=== PATIENT | female | born 1935 | race Caucasian/White ===

== ENCOUNTER → 2023-05-19 13:10 | Outpatient (CLI) | payer MEDICARE, SELFPAY ==
[2023-05-19 13:20] LABS: Microscopic, Urine URINE MICROSCOPIC (MICROSCOPIC)
[2023-05-19 13:45] LABS: Appearance,Urine CLEAR (Clear); Blood, Urine Negative (Negative); Color,Urine YELLOW (Yellow); Glucose,Urine (UA) Negative (Negative); Ketones,Urine TRACE (Negative); Leukocyte Esterase,Urine TRACE (Negative); Nitrate,Urine Negative (Negative); Protein,Urine Negative (Negative); Urobilinogen,Urine 0.2 EU/dl (0.2)
[2023-05-19 13:51] LABS: Bilirubin,Urine Negative (Negative)
[2023-05-19 13:59] LABS: Bacteria,Urine Trace /lpf; Squamous Epithelial Cell,Urine Occasional #/hpf (0-5); WBC,Urine Occasional #/hpf (0-3)
== END ==
PROVIDERS: PCP Emergency Medicine; Visit Provider Emergency Medicine
DX: R41.82 Altered mental status, unspecified (principal); M54.50 Low back pain, unspecified
CPT/HCPCS: 81001

== ENCOUNTER → 2023-06-15 04:14 | Outpatient (CLI) | payer MEDICARE, SELFPAY ==
[2023-06-15 05:24] LABS: Microscopic, Urine URINE MICROSCOPIC (MICROSCOPIC)
[2023-06-15 05:34] LABS: Appearance,Urine CLOUDY (Clear); Basophils % 0.2 % (0.1-2.0); Blood, Urine Negative (Negative); Color,Urine YELLOW (Yellow); Eosinophils # 0.1 K/mm3 (0.0-0.4); Eosinophils % 0.6 % (0.1-12.0); Glucose,Urine (UA) Negative (Negative); Hematocrit 41.7 % (37.0-47.0); Hemoglobin 13.9 g/dL (12.2-16.2); Ketones,Urine Negative (Negative); Leukocyte Esterase,Urine 1+ (Negative); Lymphocytes # 1.7 K/mm3 (0.7-4.5); Lymphocytes % 15.7 % (10-50); Mean Corpuscular HGB Conc 33.2 g/dL (31.8-35.4); Mean Corpuscular Hemoglobin 31.8 pg (27.0-31.2); Mean Corpuscular Volume 95.8 fl (81-99); Monocytes # 0.5 K/mm3 (0.1-1.0); Monocytes % 4.6 % (1.7-9.3); Neutrophils # 8.7 K/mm3 (1.8-7.8); Nitrate,Urine Negative (Negative); Platelet Count 203 K/mm3 (142-424); Protein,Urine Negative (Negative); Red Blood Count 4.35 M/mm3 (4.20-5.40); Red Cell Distribution Width 14.3 % (11.5-17.5); Specific Gravity, Urine 1.015 (1.005-1.030); Urobilinogen,Urine 0.2 EU/dl (0.2)
[2023-06-15 05:36] LABS: Bilirubin,Urine Negative (Negative)
[2023-06-15 05:42] LABS: Alanine Aminotransferase 13 U/L (12-78); Albumin Level 3.5 g/dl (3.5-5.0); Albumin/Globulin Ratio 1.3 (1.1-1.8); Alkaline Phosphatase 110 U/L (38-126); Anion Gap 15.8 mEq/L (5-15); Aspartate Amino Transferase 24 U/L (14-36); Bilirubin,Total 0.5 mg/dl (0.2-1.3); Blood Urea Nitrogen 52 mg/dl (7-17); Calcium 9.1 mg/dl (8.4-10.2); Carbon Dioxide 22 mmol/L (22.0-30.0); Chloride 101 mmol/L (98-107); Estimated Glomerular Filt Rate 30 ml/min (>60); GFR (African American) 37 ML/MIN (>60); Globulin 2.8 g/dL (1.3-3.2); Glucose 76 mg/dl (74-100); Potassium 3.8 mmoL/L (3.5-5.1); Sodium 135 mmol/L (136-145); Total Protein,Serum 6.3 g/dl (6.3-8.2)
[2023-06-15 05:48] LABS: Bacteria,Urine 3+ /lpf; Mucus,Urine Trace /lpf; Squamous Epithelial Cell,Urine Occasional #/hpf (0-5)
== END ==
PROVIDERS: PCP Internal Medicine; Visit Provider Internal Medicine
DX: Z86.39 Personal history of other endocrine, nutritional and metabolic disease (principal)
CPT/HCPCS: 80053; 81001; 85025; 87086

== ENCOUNTER → 2023-06-15 04:17 | Outpatient (CLI) | payer MEDICARE, SELFPAY | PROVIDERS: PCP Internal Medicine; Visit Provider Internal Medicine | DX: R41.3 Other amnesia (principal) ==

== ENCOUNTER 2023-06-15 07:26 | Observation (INO) | payer MEDICARE, SELFPAY ==
[2023-06-15] VITALS (15 sets, daily range): BP systolic 56–120; BP diastolic 32–70; PULSE 66–101; RESP 12–17; TEMP 36.3–36.7; O2SAT 93–99; BMI 18.9; BMI 17.9
--- NOTE | 2023-06-15 07:28 | XR_ITS ---
FINAL REPORT CLINICAL HISTORY: covid +, cough FINDINGS: SINGLE-VIEW CHEST The heart size is normal. The mediastinum is normal. There is mild atelectasis or scar. There is no pneumothorax. IMPRESSION: Mild atelectasis or scar. Reviewed, Interpreted and Dictated by Trevon Daily III, MD Transcribed by Spring Santamaria Authenticated and [facility]
--- NOTE | 2023-06-15 07:40 | PC.NURSE ---
XR AT BEDSIDE
--- NOTE | 2023-06-15 07:45 | PC.NURSE ---
LAB AT BEDSIDE
--- NOTE | 2023-06-15 07:54 | HMH.EDGENADL ---
Discharge Plan Disposition Patient Disposition: Admitted Condition: Good Clinical Impressions Clinical Impression: ANI (acute kidney injury), Dehydration, Acute UTI, COVID-19 Discharge ED Provider: Sola Dockery General Adult HPI General Chief complaint: Recheck/Abnormal Lab/Rx Stated complaint: weakness Time Seen by Provider: 06/15/23 07:29 Mode of Arrival: EMS Source of Information: EMS and Medical Record Limitations: Altered Mental Status Description of Symptoms (Recalled from ER Triage Doc. by RN): Pt sent from SNF for lots of secretions and recent Covid +. Kristan @ [place] also reports pt to have really bad labs yesterday . Pt is AMS at baseline. Pt has a mild cough. Her mouth is dry and nasal passages are clear. Pt does appear tired. She will not speak, although she will respond with nodding and shaking her head. History of Present Illness HPI narrative: This patient is an 87-year-old female with a history of dementia, hypothyroidism, hyperlipidemia, vitamin D deficiency, anxiety, CHF, hypertension, polyneuropathy, and generalized debility presenting to the emergency department for evaluation with concern for abnormal labs. According to nursing facility report, the patient tested positive for COVID-19 on Monday and had labs drawn yesterday that were abnormal. On medical record review, I see that the patient appeared clinically dry with mildly elevated anion gap and BUN as well as an ANI with a creatinine of 1.6. I also see leukocyte esterase and bacteria in her urine from yesterday. I was able to find labs in her epic chart that demonstrated a baseline normal creatinine as of March 2023. She was around 0.5. No other concerns were noted when report was given. EMS notes that the patient was stable in route. Patient does not contribute to history given her history of dementia. Related Data Home Medications Medication Instructions Recorded Confirmed Lactobacillus acidoph-L.bulgaricus 1 tab PO DAILY 06/13/23 06/15/23 1 million cell chewable tablet acetaminophen 500 mg tablet 1,000 mg PO BID 06/13/23 06/15/23 acetaminophen 500 mg tablet 500 mg PO Q6H PRN Pain, Moderate 06/13/23 06/15/23 baclofen 10 mg tablet 10 mg PO QID 06/13/23 06/15/23 calcium carbonate 200 mg calcium 200 mg PO TID 06/13/23 06/15/23 (500 mg) chewable tablet (Tums) cholecalciferol (vitamin D3) 25 25 mcg PO DAILY 06/13/23 06/15/23 mcg (1,000 unit) capsule furosemide 20 mg tablet 20 mg PO DAILY 06/13/23 06/15/23 guaifenesin 100 mg/5 mL oral liquid 200 mg PO Q6H PRN Cough 06/13/23 06/15/23 lactulose 10 gram/15 mL oral 20 g PO DAILY 06/13/23 06/15/23 solution levothyroxine 75 mcg tablet 75 mcg PO DAILY 06/13/23 06/15/23 lisinopril 2.5 mg tablet 2.5 mg PO DAILY 06/13/23 06/15/23 polyethylene glycol 3350 17 17 g PO DAILY 06/13/23 06/15/23 gram/dose oral powder (Miralax) risperidone 0.25 mg tablet 0.25 mg PO HS paranoid delusions 06/13/23 06/15/23 sennosides 8.6 mg-docusate sodium 1 tab-cap PO BID 06/13/23 06/15/23 50 mg tablet (Senexon-S) sertraline 100 mg tablet 100 mg PO DAILY 06/13/23 06/15/23 Previous Rx's Medication Instructions Recorded lorazepam 1 mg tablet (Ativan) 1 mg PO TID #90 tabs 04/12/23 Allergies Allergy/AdvReac Type Severity Reaction Status Date / Time dicyclomine [From Bentyl] Allergy Unknown Verified 06/13/23 11:13 doxazosin [From Cardura] Allergy Unknown Verified 06/13/23 11:13 gentamicin Allergy Unknown Verified 06/13/23 11:13 lansoprazole [From Prevacid] Allergy Unknown Verified 06/13/23 11:13 metronidazole [From Flagyl] Allergy Unknown Verified 06/13/23 11:13 Penicillins Allergy Unknown Verified 06/13/23 11:13 zolpidem [From Ambien] Allergy Unknown Verified 06/13/23 11:13 [facility] Disclaimer: The information contained in this section may have been updated after the patient was seen, as this information can be updated by other users. Medical History (Reviewed 06/15/23 @ 07:56 by Sola Hill
--- NOTE | 2023-06-15 07:58 | ECG_ITS ---
APPROVED REPORT Exam: Resting ECG HR:105 bpm ECG Measurements Heart Rate 105 AXES AR 131 P -83 QRSd 97 QRS -45 QT 352 T 40 QTc 413 Conclusion NSR with atrial abnormality LEFT ANTERIOR FASCICULAR BLOCK With LAD Late R wave progression ABNORMAL ECG UNCONFIRMED REPORT Electronically signed by : Devang Mooney MD 06/15/2023 17:12:49
[2023-06-15 08:05] LABS: Basophils % 0.1 % (0.1-2.0); Eosinophils # 0.1 K/mm3 (0.0-0.4); Eosinophils % 0.5 % (0.1-12.0); Hematocrit 41.9 % (37.0-47.0); Lymphocytes # 1.4 K/mm3 (0.7-4.5); Mean Corpuscular HGB Conc 33.4 g/dL (31.8-35.4); Mean Corpuscular Hemoglobin 31.8 pg (27.0-31.2); Mean Corpuscular Volume 95.1 fl (81-99); Mean Platelet Volume 8.3 fl (7.4-10.4); Monocytes # 0.4 K/mm3 (0.1-1.0); Monocytes % 3.5 % (1.7-9.3); Neutrophils # 8.1 K/mm3 (1.8-7.8); Neutrophils % 81.9 % (37.0-80.0); Platelet Count 188 K/mm3 (142-424); Red Blood Count 4.41 M/mm3 (4.20-5.40); Red Cell Distribution Width 14.3 % (11.5-17.5); White Blood Count 9.9 K/mm3 (4.8-10.8)
[2023-06-15 08:12] LABS: Chloride 101 mmol/L (98-107)
[2023-06-15 08:13] LABS: Potassium 3.7 mmoL/L (3.5-5.1); Sodium 139 mmol/L (136-145)
[2023-06-15 08:15] LABS: Alanine Aminotransferase 15 U/L (12-78); Alkaline Phosphatase 126 U/L (38-126); Anion Gap 16.7 mEq/L (5-15); Aspartate Amino Transferase 26 U/L (14-36); Bilirubin,Total 0.6 mg/dl (0.2-1.3); Blood Urea Nitrogen 54 mg/dl (7-17); Carbon Dioxide 25 mmol/L (22.0-30.0); Creatinine Clearance Estimated 15 mL/min (50-200); Estimated Glomerular Filt Rate 24 ml/min (>60); GFR (African American) 28 ML/MIN (>60)
[2023-06-15 08:16] LABS: Albumin Level 3.9 g/dl (3.5-5.0); Albumin/Globulin Ratio 1.3 (1.1-1.8); Calcium 9.3 mg/dl (8.4-10.2); Globulin 3.1 g/dL (1.3-3.2); Glucose 93 mg/dl (74-100)
[2023-06-15 08:20] LABS: Microscopic, Urine URINE MICROSCOPIC (MICROSCOPIC)
[2023-06-15 08:26] LABS: Appearance,Urine CLEAR (Clear); Blood, Urine 2+ (Negative); Color,Urine YELLOW (Yellow); Glucose,Urine (UA) Negative (Negative); Ketones,Urine Negative (Negative); Leukocyte Esterase,Urine 2+ (Negative); Nitrate,Urine Negative (Negative); Protein,Urine Negative (Negative); Specific Gravity, Urine 1.015 (1.005-1.030); Urobilinogen,Urine 0.2 EU/dl (0.2)
[2023-06-15 08:29] LABS: Bilirubin,Urine Negative (Negative)
[2023-06-15 08:39] LABS: Bacteria,Urine 3+ /lpf; Squamous Epithelial Cell,Urine Occasional #/hpf (0-5)
--- NOTE | 2023-06-15 08:43 | PC.NURSE ---
Dr Dockery speaking with hospitalist
--- NOTE | 2023-06-15 08:46 | PC.NURSE ---
Called Care Management, s/w Xuan, notified of admission for ANI, COVID, UTI for Dr. Da Silva/Hospitalist
[2023-06-15 08:52] LABS: Influenza A, PCR Not Detected (NotDetected); Influenza B, PCR Not Detected (NotDetected)
[2023-06-15 09:00] LABS: Lactic Acid 1.3 mmol/L (0.7-2.1)
[2023-06-15 09:14] LABS: Coronavirus 19, PCR Detected (NotDetected)
[2023-06-15 09:27] LABS: Thyroid Stimulating Hormone 3.17 uIU/mL (0.465-4.68)
--- NOTE | 2023-06-15 09:44 | HMH.PHAINT1 ---
Pharmacy Intervention Comments: Med reconciliation completed using list from Laura
--- NOTE | 2023-06-15 10:17 | EXP.HP ---
History of Present Illness *Admission Date: 06/15/23 *Reason for visit:: increased confusion and weakness *History of present illness: Ms. Owens is an 87-year-old female with dementia, hypothyroid, hyperlipidemia, CHF who lives at [facility]. Family at bedside provides history as patient is unable to give any history. Patient was sent from SNF today for increased secretions, poor p.o. intake, and decline over the past week. Patient was diagnosed positive with COVID on Monday. Family reports that for the past week she has been eating less and it has been hard to give her medications. She has become more confused and somnolent. Today she was brought to the ER via EMS for evaluation. On arrival she is afebrile but tachycardic, found to be positive for COVID again. Noted to have ANI and concern for UTI on workup. Creatinine elevated to 2.0. Given her decline, ER consulted medicine for admission and further management. At baseline, patient gets around with a walker and 2 people assisting her. She has lost weight over the last 6 months. Fell and broke her hip earlier this year in November. Has good days and bad days but has been having more confusion and less recognition of family. Daughter concerned that patient is showing a decline and in a transition phase with her dementia. They deny any nausea, vomiting, syncope. They do report cough. [facility] Disclaimer: The information contained in this section may have been updated after the patient was seen, as this information can be updated by other users. 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 Polyneuropathy, unspecified Pulmonary fibrosis, unspecified Unspecified fracture of left femur, subsequent encounter for closed fracture with routine healing Unspecified hemorrhoids Vitamin D deficiency Family History No significant family history Social History Smoking Status: Never smoker alcohol intake: never current occupational status: retired Travel in the last 8 weeks: None Review of Systems Review of Systems Review of systems:: unable to obtain Meds Home Medications and Allergies Home Medications Medication Instructions Recorded Confirmed Type lorazepam 1 mg tablet (Ativan) 1 mg PO TID #90 tabs 04/12/23 06/15/23 Rx acetaminophen 500 mg tablet 1,000 mg PO BID 06/13/23 06/15/23 History acetaminophen 500 mg tablet 500 mg PO Q6H PRN Pain, Moderate 06/13/23 06/15/23 History baclofen 10 mg tablet 10 mg PO QID 06/13/23 06/15/23 History calcium carbonate 200 mg calcium 200 mg PO TID 06/13/23 06/15/23 History (500 mg) chewable tablet (Tums) cholecalciferol (vitamin D3) 25 25 mcg PO DAILY 06/13/23 06/15/23 History mcg (1,000 unit) capsule furosemide 20 mg tablet 20 mg PO DAILY 06/13/23 06/15/23 History guaifenesin 100 mg/5 mL oral liquid 200 mg PO Q6H PRN Cough 06/13/23 06/15/23 History lactulose 10 gram/15 mL oral 20 g PO DAILYP PRN Constipation 06/13/23 06/15/23 History solution levothyroxine 75 mcg tablet 75 mcg PO DAILY 06/13/23 06/15/23 History lisinopril 2.5 mg tablet 2.5 mg PO DAILY 06/13/23 06/15/23 History polyethylene glycol 3350 17 17 g PO DAILY 06/13/23 06/15/23 History gram/dose oral powder (Miralax) risperidone 0.25 mg tablet 0.25 mg PO HS paranoid delusions 06/13/23 06/15/23 History sennosides 8.6 mg-docusate sodium 1 tab-cap PO BID 06/13/23 06/15/23 History 50 mg
--- NOTE | 2023-06-15 19:55 | PC.NURSE ---
Notified Greg [employer] of pt unable to swallow PO meds due to confusion and cooperation. Greg ordered to hold medications with no other orders at this time.
[2023-06-16] VITALS: BP 113/54; PULSE 90; RESP 18; TEMP 37.3; O2SAT 96
[2023-06-16 04:00] VITALS: BP 131/93; PULSE 120; RESP 16; TEMP 36.4; O2SAT 95; BMI 21.5
--- NOTE | 2023-06-16 05:23 | PC.NURSE ---
Nurse techs notified that pt hasn't urinated the entire shift, assessed pt, pt abdomen is slightly distended and tender to touch pt seems to be in pain as nurse palpates. Notified Greg, [employer]UMENT [employer]ER and bladder scan performed. Bladder scanner recorded > 755. Gonsalves cath anchored at this time with output of 1300. Pt seems calm and relieved at this time.
--- NOTE | 2023-06-16 05:43 | PC.NURSE ---
Pt abdomen soft and nontender pt seems calm and denies pain at this time
[2023-06-16 08:00] VITALS: BP 147/96; PULSE 97; RESP 18; TEMP 36.9; O2SAT 97
[2023-06-16 08:35] LABS: Basophils % 0.2 % (0.1-2.0); Chloride 102 mmol/L (98-107); Eosinophils % 0.4 % (0.1-12.0); Hematocrit 45.1 % (37.0-47.0); Hemoglobin 14.9 g/dL (12.2-16.2); Lymphocytes # 1.4 K/mm3 (0.7-4.5); Lymphocytes % 13.4 % (10-50); Mean Corpuscular HGB Conc 33.1 g/dL (31.8-35.4); Mean Corpuscular Hemoglobin 31.9 pg (27.0-31.2); Mean Corpuscular Volume 96.2 fl (81-99); Mean Platelet Volume 9.7 fl (7.4-10.4); Monocytes # 0.6 K/mm3 (0.1-1.0); Monocytes % 5.4 % (1.7-9.3); Neutrophils # 8.4 K/mm3 (1.8-7.8); Neutrophils % 80.6 % (37.0-80.0); Platelet Count 178 K/mm3 (142-424); Potassium 3.7 mmoL/L (3.5-5.1); Red Blood Count 4.69 M/mm3 (4.20-5.40); Red Cell Distribution Width 14.6 % (11.5-17.5); Sodium 142 mmol/L (136-145); White Blood Count 10.4 K/mm3 (4.8-10.8)
[2023-06-16 08:37] LABS: Blood Urea Nitrogen 47 mg/dl (7-17); Creatinine Clearance Estimated 25 mL/min (50-200); Estimated Glomerular Filt Rate 39 ml/min (>60); GFR (African American) 47 ML/MIN (>60)
[2023-06-16 08:38] LABS: Alanine Aminotransferase 22 U/L (12-78); Albumin Level 3.9 g/dl (3.5-5.0); Albumin/Globulin Ratio 1.3 (1.1-1.8); Alkaline Phosphatase 139 U/L (38-126); Anion Gap 16.7 mEq/L (5-15); Aspartate Amino Transferase 31 U/L (14-36); Bilirubin,Total 0.6 mg/dl (0.2-1.3); Calcium 9.3 mg/dl (8.4-10.2); Carbon Dioxide 27 mmol/L (22.0-30.0); Globulin 3.1 g/dL (1.3-3.2); Glucose 102 mg/dl (74-100); Magnesium 1.9 mg/dl (1.6-2.3)
--- NOTE | 2023-06-16 09:24 | SW/DCPLANNER ---
This patient currently resides at [facility] level of care. I will continue to follow up w/ Ena at [place] until patient is medically stable for discharge. Discharge date is unknown at this time.
[2023-06-16 12:00] VITALS: BP 159/99; PULSE 88; RESP 16; TEMP 36.5; O2SAT 94
[2023-06-16 13:59] VITALS: BMI 21.4
--- NOTE | 2023-06-16 14:27 | HMH.PTEV ---
Physical Therapy Evaluation Rehab PT IP Evaluation Start: 06/16/23 11:15 Freq: ONCE Status: Active Protocol: Document 06/16/23 14:11 RAZIA (Rec: 06/16/23 14:26 RAZIA [id number]) Subjective/History History History Patient is an 87 year old female with dementia admitted to [facility] 06/15/23 secondary to ANI, UTI and COVID. Patient was recently experiencing increased secretions, poor intake and functional decline over the past week. She lives at SNF. Patient was alone in room upon evaluation. Unable to describe baseline status at this time. Total dependent for bed mobility today. Severe confusion noted. Subjective Subjective Oh god! New diagnosis of cancer in past 12 No months? Rehab PT IP Eval Objective Appearance Patient Behavior Asleep,Confused Patient Orientation Name Difficulty following instructions severe Speech Pattern Mumbled Ambulation Patient Able to Ambulate No Balance Ability to Arise Unable Dynamic Sitting Balance Ability Zero Transfers Bed Transfer Ability Total/Dependent (100%) ROM All Extremities PT ROM Status ABN MMT All Extremities PT MMT ABN Abnormal MMT Grade 2/5 Rehab PT IP prob,goals,plan Problems Date of Evaluation: 06/16/23 PT IP Problems Bed Mobility,Transfers,Gait, Balance,Self care,Safety Rehab Potential Rehab Potential Poor Plan PT Intervention Plan Bed Mobility,Transfers,Gait, Balance,Self care,Safety, Therapeutic Exercise PT Plan Frequency BID Duration LOS Discharge Goals Bed Transfer Ability Maximum x 2 (75% assist) Sit to Stand Chair Transfer Ability Maximum x 2 (75% assist) Discharge Plan PT Discharge Plan PT suggest return to SNF to continue skilled PT interventions once found medically stable by . Veronica Complexity Eval Charge Codes 56360 - High Complexity PHYSICIAN CERTIFICATION: I certify the specified therapy services for Nora Owens are required, authorized, and reviewed every 30 days.
--- NOTE | 2023-06-16 15:46 | HMH.SLDYSPHA ---
Speech & Language Evaluation Speech/Language Dysphagia Evaluation Start: 06/16/23 15:24 Freq: ONCE Status: Active Protocol: Document 06/16/23 15:24 RAH (Rec: 06/16/23 15:46 RAH [id number]) Dysphagia Assess/Goals/Plan Assessment Date of Evaluation: 06/16/23 Evaluation Type Initial Certification Assessment/Problems dysphagia/dementia per MD order Does Patient Qualify for Service Yes Qualify/Failure Comment Pt would benefit from f/u CSE when PO intake improves 2' noncompliance Recommendations PHYSICIAN CERTIFICATION: The specified therapy services are required, authorized, and reviewed every 30 days. Diet Recommendations Pureed Liquid Type Recommendations Normal/Thin SL Swallow Guidelines Assist w/all meals,Alt bite w/ sip thru meal,Standard Aspiration Prec.,Chk mough for pocketing,Crush meds as allowed*,Oral Care Education, Oral care pre/post meals Crush Meds Crush all meds Dysphagia Swallow Precautions/Strategies Sitting Upright (90 deg),Small Bites and Sips,Alternate Liquids/Solids Place Food on Either side of Mouth Additional Consults Recommended Care Management Comment Cognitive decline, potential discussion of pleasure feedings/comfort care Plan Pt/Guardian verbally ack understanding Yes of dx/prognosis/goals G -code Required No Education Instructions provided Discussed limited CSE results, safest recommendations 2' cognitive-linguistic status, and plan to f/u with pt/family , nursing, and care management all of which expressed understanding. Pt/Caregiver able to recall information Able to recall/restate Reinforcement needed No Speech & Language HPI History Present Illness Description of Patient Problem Pt is an 87-year-old female with dementia, hypothyroid, hyperlipidemia, CHF who lives at [facility]. Patient was sent from SNF to ER on 06/15/23 for increased secretions, poor p.o. intake, and decline over the past week . Patient was diagnosed positive with
[2023-06-16 16:00] VITALS: BP 101/83; PULSE 83; RESP 16; TEMP 36.7; O2SAT 97
--- NOTE | 2023-06-16 18:07 | EXP.ACUTE.PN ---
Subjective *Date: 06/16/23 *Time: 18:07 Interval history: Pleasant on exam. Oriented to self only. Minimal response to questions but more alert making good eye contact. Afebrile. Stable on room air. Medical Exam Vital signs and Labs for Last 24 Hours: Vital Signs Temp Pulse Resp BP Pulse Ox O2 Del Method 06/16/23 16:00 98.1 F 83 16 101/83 L 97 Room Air 06/16/23 15:24 Room Air 06/16/23 15:00 Room Air 06/16/23 13:00 Room Air 06/16/23 12:00 97.7 F 88 16 159/99 H 94 L Room Air 06/16/23 11:00 Room Air 06/16/23 09:00 Room Air 06/16/23 08:00 Room Air 06/16/23 08:00 98.4 F 97 H 18 147/96 H 97 Room Air 06/16/23 06:48 Room Air 06/16/23 04:00 97.6 F 120 H 16 131/93 H 95 Room Air 06/16/23 05:00 Room Air 06/16/23 00:00 99.1 F 90 18 113/54 L 96 Room Air 06/16/23 03:00 Room Air 06/16/23 01:00 Room Air 06/15/23 22:32 Room Air 06/15/23 21:00 Room Air 06/15/23 19:17 Room Air 06/15/23 18:27 Room Air Intake and Output 06/16/23 06/16/23 06/16/23 07:59 15:59 23:59 Intake Total 2036 Output Total 1300 / 1800 500 / 1800 Balance -1240 / 237 -470 / 237 1946 Intake: Intake, Oral Amount Infusion Intake 1946 Lactated Ringers 1000ML 1,000 1946 ml @ 125 mls/hr IV .Q8H [facility] Rx# :[id number] Output: Output, Urine Amount 1300 / 1800 500 / 1800 Other: Weight 53.099 kg 53 kg Patient Weight 06/16/23 23:59 Weight 53 kg Laboratory Results - last 24 hr 06/16/23 07:17: WBC 10.4, RBC 4.69, Hgb 14.9, Hct 45.1, MCV 96.2, MCH 31.9 H, MCHC 33.1, RDW 14.6, Plt Count 178, MPV 9.7, Neut % (Auto) 80.6 H, Lymph % (Auto) 13.4, [place] % (Auto) 5.4, Eos % (Auto) 0.4, Baso % (Auto) 0.2, Neut # (Auto) 8.4 H, Lymph # (Auto) 1.4, [place] # (Auto) 0.6, Eos # (Auto) 0.0, Baso # (Auto) 0.0, Sodium 142, Potassium 3.7, Chloride 102, Carbon Dioxide 27, Anion Gap 16.7 H, BUN 47 H, Creatinine 1.30 H D, Estimated Creat Clear 25, Estimated GFR 39 L, Est GFR ( Amer) 47 L D, Glucose 102 H, Calcium 9.3, Magnesium 1.9, Total Bilirubin 0.6, AST 31, ALT 22 D, Alkaline Phosphatase 139 H, Total Protein 7.0, Albumin 3.9, Globulin 3.1, Albumin/Globulin Ratio 1.3 I & O for Labs for Last 24 Hours: Intake & Output 06/13/23 06/14/23 06/15/23 06/16/23 23:59 23:59 23:59 23:59 Intake Total 1050 / 1050 2036 / 2036 Output Total 0 / 0 1800 / 1800 Balance 1050 / 1050 237 / 237 Weight 44.48 kg 53 kg Constitutional: Present no acute distress, thin, chronically ill appearing and cooperative Head: Present atraumatic ENT: Present normal exam Comment:: Bitemporal wasting Respiratory: Present normal respiratory effort; Absent rhonchi, wheezes or crackles Cardiac: Present Reg Rate and Rhythm GI: Present soft and normal bowel sounds; Absent distention or tenderness Extremities: Present normal inspection and full ROM Skin: Present intact; Absent erythema Neuro: Present Grossly Intact, alert, awake and moves all extremities Assessment and Plan *Assessment and plan (1) ANI (acute kidney injury): Status: Acute Category: Medical Code(s): N17.9 - Acute kidney failure, unspecified (2) Dehydration: Status: Acute Category: Medical Code(s): E86.0 - Dehydration (3) Acute UTI: Status: Acute Category: Medical Code(s): N39.0 - Urinary tract infection, site not specified (4) COVID-19: Status: Acute Category: Medical Code(s): U07.1 - COVID-19 (5) Muscle weakness (generalized): Status: Acute Category: Medical Code(s): M62.81 - Muscle weakness (generalized) (6) Chronic systolic (congestive) heart failure: Status: Acute Category: Medical Code(s): I50.22 - Chronic systolic (congestive) heart failure (7) Essential (primary) hypertension: Status: Acute
[2023-06-16 20:00] VITALS: BP 100/73; PULSE 120; RESP 18; TEMP 36.9; O2SAT 93
[2023-06-17] VITALS: BP 99/67; PULSE 95; RESP 20; TEMP 37.2; O2SAT 93
[2023-06-17 04:00] VITALS: BP 112/78; PULSE 68; RESP 22; TEMP 37.6; O2SAT 97; BMI 19.5
--- NOTE | 2023-06-17 05:05 | PC.NURSE ---
Patient has had a decent night tonight. Patient did take her med this evening with Chocolate pudding and her pills crushed. After each bite did have a small amout of coughing. But after a drink of water the coughing subsided. Patient is alert to self but that is it. RN tried to have some conversation with her about eating. She could tell me she wanted more pudding and something to drink but nothing really more. Patient remains with a nicolas due to retention. No other issues noted
[2023-06-17 07:50] VITALS: BP 153/93; PULSE 95; RESP 17; TEMP 36.4; O2SAT 96
[2023-06-17 07:51] LABS: Chloride 106 mmol/L (98-107); Potassium 3.7 mmoL/L (3.5-5.1); Sodium 144 mmol/L (136-145)
[2023-06-17 07:54] LABS: Anion Gap 13.7 mEq/L (5-15); Basophils % 0.1 % (0.1-2.0); Blood Urea Nitrogen 32 mg/dl (7-17); Calcium 9.2 mg/dl (8.4-10.2); Carbon Dioxide 28 mmol/L (22.0-30.0); Creatinine Clearance Estimated 30 mL/min (50-200); Estimated Glomerular Filt Rate 59 ml/min (>60); GFR (African American) 71 ML/MIN (>60); Glucose 115 mg/dl (74-100); Hematocrit 40.7 % (37.0-47.0); Hemoglobin 13.5 g/dL (12.2-16.2); Lymphocytes # 1.5 K/mm3 (0.7-4.5); Lymphocytes % 14.4 % (10-50); Magnesium 1.8 mg/dl (1.6-2.3); Mean Corpuscular HGB Conc 33.1 g/dL (31.8-35.4); Mean Corpuscular Hemoglobin 31.9 pg (27.0-31.2); Mean Corpuscular Volume 96.3 fl (81-99); Mean Platelet Volume 9.8 fl (7.4-10.4); Monocytes # 0.7 K/mm3 (0.1-1.0); Monocytes % 6.5 % (1.7-9.3); Neutrophils % 78.9 % (37.0-80.0); Platelet Count 177 K/mm3 (142-424); Red Blood Count 4.23 M/mm3 (4.20-5.40); Red Cell Distribution Width 14.5 % (11.5-17.5); White Blood Count 10.1 K/mm3 (4.8-10.8)
--- NOTE | 2023-06-17 09:09 | PC.NURSE ---
pt is alert this am but not oriented. she responds to her first name but is unable to voice any orientation. I attempted to give pt medication but she was unable to swallow. She can not follow commands @ this time. 1 episode of vomiting this am. Will continue to monitor pt.
[2023-06-17 11:13] VITALS: PULSE 118; RESP 17; TEMP 36.5; O2SAT 97
[2023-06-17 16:00] VITALS: BP 158/100; PULSE 77; RESP 17; TEMP 36.6; O2SAT 96
--- NOTE | 2023-06-17 17:42 | PC.NURSE ---
pt will not accept any food. I have made multiple attempts to feed her and give her medications today. DAughter is currently @ bedside. states they just want her to be comfortable.
--- NOTE | 2023-06-17 17:45 | EXP.PN ---
Subjective *Date: 06/17/23 *Time: 17:45 Interval history: patient was seen and evaluated at the bedside. denies chest pain, shortness of breath, nausea, vomiting, abdominal pain. Patient does not have any complaints at this time. feels better overall Exam Data for Last 24 hours Vital signs and Labs for Last 24 Hours: Temp Pulse Resp BP Pulse Ox O2 Del Method 97.9 F 77 17 158/100 H 96 Room Air 06/17/23 16:00 06/17/23 16:00 06/17/23 16:00 06/17/23 16:00 06/17/23 16:00 06/17/23 16:00 Laboratory Results - last 24 hr 06/17/23 06:40: WBC 10.1, RBC 4.23, Hgb 13.5, Hct 40.7, MCV 96.3, MCH 31.9 H, MCHC 33.1, RDW 14.5, Plt Count 177, MPV 9.8, Neut % (Auto) 78.9, Lymph % (Auto) 14.4, [place] % (Auto) 6.5, Eos % (Auto) 0.0 L, Baso % (Auto) 0.1, Neut # (Auto) 8.0 H, Lymph # (Auto) 1.5, [place] # (Auto) 0.7, Eos # (Auto) 0.0, Baso # (Auto) 0.0, Sodium 144, Potassium 3.7, Chloride 106, Carbon Dioxide 28, Anion Gap 13.7, BUN 32 H D, Creatinine 0.90 D, Estimated Creat Clear 30, Estimated GFR 59, Est GFR ( Amer) 71 D, Glucose 115 H, Calcium 9.2, Magnesium 1.8 I & O for Last 24 hours: Intake & Output 06/14/23 06/15/23 06/16/23 06/17/23 23:59 23:59 23:59 23:59 Intake Total 1050 / 1050 2112 / 2112 0 / 0 Output Total 0 / 0 1800 / 1800 450 / 450 Balance 1050 / 1050 312 / 312 -450 / -450 Weight 44.48 kg 53 kg 48.262 kg Constitutional Constitutional: no acute distress *Routine HEENT Exam Head: Present normocephalic Eye: Present EOMI and PERRL ENT: Present mucous membranes moist *Routine Neck Exam Neck: Present supple; Absent lymphadenopathy *Routine Respiratory Exam Respiratory: Present CTA bilaterally *Routine Cardiovascular Exam Cardiovascular: Present RRR *Routine Abdominal Exam Abdominal: Present soft and normoactive bowel sounds; Absent tenderness *Routine Extremities Exam Extremities: Absent cyanosis, clubbing or edema *Routine Skin Exam Skin: Present warm; Absent rash *Routine Neurological Exam Neurological: Present alert and oriented X3 Assessment and Plan *Assessment and plan (1) ANI (acute kidney injury): Status: Acute Category: Medical Code(s): N17.9 - Acute kidney failure, unspecified (2) Dehydration: Status: Acute Category: Medical Code(s): E86.0 - Dehydration (3) Acute UTI: Status: Acute Category: Medical Code(s): N39.0 - Urinary tract infection, site not specified (4) COVID-19: Status: Acute Category: Medical Code(s): U07.1 - COVID-19 (5) Muscle weakness (generalized): Status: Acute Category: Medical Code(s): M62.81 - Muscle weakness (generalized) (6) Chronic systolic (congestive) heart failure: Status: Acute Category: Medical Code(s): I50.22 - Chronic systolic (congestive) heart failure (7) Essential (primary) hypertension: Status: Acute Category: Medical Code(s): I10 - Essential (primary) hypertension (8) Generalized anxiety disorder: Status: Acute Category: Medical Code(s): F41.1 - Generalized anxiety disorder (9) Alzheimer's disease with late onset: Status: Acute Category: Medical Code(s): G30.1 - Alzheimer's disease with late onset; F02.80 - Dementia in other diseases classified elsewhere, unspecified severity, without behavioral disturbance, psychotic disturbance, mood disturbance, and anxiety (10) Hypothyroidism: Status: Acute Category: Medical Code(s): E03.9 - Hypothyroidism, unspecified (11) Dementia in other diseases classified elsewhere, unspecified severity, with other behavioral disturbance: Status: Acute Category: Medical Code(s): F02.818 - Dementia in other diseases classified elsewhere, unspecified severity, with other behavioral disturbance Plan 87-year-old female with dementia for which decline over the past week. Poor p.o. intake. Found to have UTI
[2023-06-17 20:00] VITALS: BP 153/96; PULSE 100; RESP 16; TEMP 36.7; O2SAT 96
[2023-06-18] VITALS: BP 134/79; PULSE 113; RESP 20; TEMP 37.2; O2SAT 96
[2023-06-18 04:00] VITALS: BP 143/91; PULSE 106; RESP 16; TEMP 36.7; O2SAT 96; BMI 18.8
--- NOTE | 2023-06-18 05:06 | PC.NURSE ---
Patient has not slept much at all this shift. RN tried multiple times to give medication. Patient got choked. Even talking seeming to be difficult for the patient and she would cough and, be tearing in eyes. The patient was more vocal this shift. As she would tell me if she was cold, or to tell RN she was okay. Patient has not thrown up this shift. no other issues noted
[2023-06-18 07:44] VITALS: BP 158/96; PULSE 86; RESP 18; TEMP 36.9; O2SAT 94
[2023-06-18 11:09] VITALS: BP 148/80; PULSE 114; RESP 19; TEMP 37; O2SAT 95
--- NOTE | 2023-06-18 14:23 | EXP.DC.SUM ---
General Admission date:: 06/15/23 Discharge date: 06/18/23 HPI HPI HPI: Ms. Owens is an 87-year-old female with dementia, hypothyroid, hyperlipidemia, CHF who lives at [facility]. Family at bedside provides history as patient is unable to give any history. Patient was sent from SNF today for increased secretions, poor p.o. intake, and decline over the past week. Patient was diagnosed positive with COVID on Monday. Family reports that for the past week she has been eating less and it has been hard to give her medications. She has become more confused and somnolent. Today she was brought to the ER via EMS for evaluation. On arrival she is afebrile but tachycardic, found to be positive for COVID again. Noted to have ANI and concern for UTI on workup. Creatinine elevated to 2.0. Given her decline, ER consulted medicine for admission and further management. At baseline, patient gets around with a walker and 2 people assisting her. She has lost weight over the last 6 months. Fell and broke her hip earlier this year in November. Has good days and bad days but has been having more confusion and less recognition of family. Daughter concerned that patient is showing a decline and in a transition phase with her dementia. They deny any nausea, vomiting, syncope. They do report cough. Hospital Course Hospital Course Hospital Course: 87-year-old female with dementia for which decline over the past week. Poor p.o. intake. Found to have UTI, ANI, COVID. Discussed case with the ER, request admission for treatment of her acute kidney injury with fluid resuscitation and treatment of UTI with antibiotics. Medicine agreed to admit for further management. Patient more alert today. Speech eval placed. Continues to require inpatient management. Problems addressed as follows: Weakness and altered mentation secondary to UTI and dehydration - DC on oral abx ANI - improved -Urinalysis grossly abnormal concerning for UTI. Positive for leuk esterase and WBCs. Culture pending. continue ceftriaxone 1 g daily Dementia Continue Zoloft 100 mg daily Risperdal 0.25 mg nightly, Ativan 1 mg 3 times a day as needed holding on hypertensive medications given ANI and low blood pressure Hypothyroidism: Continue levothyroxine 75 mcg daily. TSH within normal range at 3.1 stable for discharge, pureed diet Exam Data for Last 24 hours Vital signs and Labs for Last 24 Hours: Temp Pulse Resp BP Pulse Ox O2 Del Method 98.6 F 114 H 19 148/80 H 95 Room Air 06/18/23 11:09 06/18/23 11:09 06/18/23 11:09 06/18/23 11:09 06/18/23 11:09 06/18/23 11:09 I & O for Last 24 hours: Intake & Output 06/15/23 06/16/23 06/17/23 06/18/23 23:59 23:59 23:59 23:59 Intake Total 1050 / 1050 2112 / 2112 0 / 0 0 / 0 Output Total 0 / 0 1800 / 1800 2350 / 2350 250 / 250 Balance 1050 / 1050 312 / 312 -2350 / -2350 -250 / -250 Weight 44.48 kg 53 kg 48.262 kg 46.493 kg Microbiology Reports for the Last 24 Hours: Microbiology 06/15/23 07:52 Blood Blood Culture - Preliminary Constitutional Constitutional: no acute distress *Routine HEENT Exam Head: Present normocephalic Eye: Present EOMI and PERRL ENT: Present mucous membranes moist *Routine Neck Exam Neck: Present supple; Absent lymphadenopathy *Routine Respiratory Exam Respiratory: Present CTA bilaterally *Routine Cardiovascular Exam Cardiovascular: Present RRR *Routine Abdominal Exam Abdominal: Present soft and normoactive bowel sounds; Absent tenderness *Routine Extremities Exam Extremities: Absent cyanosis, clubbing or edema *Routine Skin Exam Skin: Present warm; Absent rash *Routine Neurological Exam Neurological: Present alert Comments: Ax0 x 2, baseline dementia Results Data Completed and Pending Labs on day of discharge: Preliminary micro results at discharge 06/15/23 07:52 Blood Culture - Preliminary Blood DS: Diagnosis Discharge Diagnosis (1) ANI (
--- NOTE | 2023-06-18 18:59 | PC.NURSE ---
Patient continues to be confused. Report caled to [facility]. Patient to be discharged back to [place] when EMS arrives.
[2023-06-18 20:00] VITALS: O2SAT 95
[2023-06-18 22:05] VITALS: BP 138/82; PULSE 108; RESP 16; TEMP 37; O2SAT 97
--- NOTE | 2023-06-18 23:35 | PC.NURSE ---
2335 REPORT GIVEN TO [facility]. PATIENT TRANSPORTED TO [place]. PATIENT COVID POSITIVE.
--- NOTE | 2023-06-18 23:38 | PC.NURSE ---
pt transfered off floor to [place] via EMS @23:34
== END 2023-06-18 23:37 ==
LOC: ER 08:44 → 2ND 08:58
PROVIDERS: Admitting Provider Internal Medicine Adolescent Medicine; Emergency Provider Emergency Medicine; PCP Pediatrics; Visit Provider Internal Medicine Adolescent Medicine
DX: N17.9 Acute kidney failure, unspecified (principal); E86.0 Dehydration; N39.0 Urinary tract infection, site not specified; U07.1 COVID-19; M62.81 Muscle weakness (generalized); I50.22 Chronic systolic (congestive) heart failure; I11.0 Hypertensive heart disease with heart failure; F41.1 Generalized anxiety disorder; G30.1 Alzheimer's disease with late onset; E03.9 Hypothyroidism, unspecified; F02.818 Dementia in other diseases classified elsewhere, unspecified severity, with other behavioral disturbance; E55.9 Vitamin D deficiency, unspecified; E78.5 Hyperlipidemia, unspecified; Z79.899 Other long term (current) drug therapy; Z66 Do not resuscitate
CPT/HCPCS: 71045; 80048; 80053; 81001; 83605; 83735; 84443; 85025; 87040; 87086; 87636; 92610; 93005; 97163; 99285; G0378; J0696; J2405